=== PATIENT | male | born 1975 | race Caucasian/White ===

== ENCOUNTER 2024-05-26 12:44 | Outpatient (CLI) | payer BC, SELFPAY | END 2024-05-26 12:45 | disposition home or self-care (01) | PROVIDERS: PCP Family Medicine; Visit Provider Family Medicine | DX: E10.9 Type 1 diabetes mellitus without complications (principal); E78.2 Mixed hyperlipidemia | CPT/HCPCS: 80048; 80061; 84460; 85025 ==

== ENCOUNTER 2025-02-21 09:11 | Outpatient (CLI) | payer BC, SELFPAY | END 2025-02-21 09:12 | disposition home or self-care (01) | PROVIDERS: PCP Family Medicine; Visit Provider Family Medicine | DX: E44.1 Mild protein-calorie malnutrition (principal); I10 Essential (primary) hypertension; E78.2 Mixed hyperlipidemia; E10.9 Type 1 diabetes mellitus without complications | CPT/HCPCS: 80048; 80061; 84460; 85025 ==

== ENCOUNTER 2025-10-29 09:33 | Outpatient (CLI) | payer BC, SELFPAY | END 2025-10-29 09:34 | disposition home or self-care (01) | PROVIDERS: PCP Family Medicine; Visit Provider Family Medicine | DX: E10.9 Type 1 diabetes mellitus without complications (principal) | CPT/HCPCS: 80048; 80061 ==